=== PATIENT | male | born 1980 | race Caucasian/White ===

== ENCOUNTER 2016-11-01 11:01 | Emergency (ER) | payer OTHER ==
[2016-11-01] MEDS ORDERED: hydrOXYzine HCL 50 MG/ML VIAL IM ONE (11:45)
--- NOTE | 2016-11-01 12:01 | ED Physician Documentation ---
General Adult - HISTORIAN Historian: patient, spouse - HPI Stated Complaint: anxiety Chief Complaint: General Adult Additional Information: On Buspar 2-3 weeks, but didn't take it yesterday. Says it makes him feel like he is floating. Notes BP goes up when he is irritable, eats unhealthy food. Drinks whiskey every night a tHS. Refuses IM vistaril because he doesn't like needles. 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 - ROS CONST: no problems - PAST HX Past History: hypertension, other (HLD, Anxiety/Depression) Surgeries/Procedures: none Allergies/Adverse Reactions: Allergies Allergy/AdvReac Type Severity Reaction Status Date / Time No Known Drug Allergies Allergy Verified 11/01/16 11:34 Home Medications: Ambulatory Orders Medication Instructions Recorded Buspirone HCl [Buspar] 10 mg PO DAILY 11/01/16 Hydroxyzine Pamoate [Vistaril] 25 mg PO Q6H PRN #20 capsule 11/01/16 Lisinopril [Prinivil] 10 mg PO DAILY 11/01/16 - SOCIAL HX Smoking History: cigarettes Alcohol Use: other (daily) - FAMILY HX Family History: No - VITAL SIGNS Vital Signs: Vital Signs Temp Pulse Resp BP Pulse Ox 98.2 F 99 H 20 150/102 96 11/01/16 11:30 11/01/16 11:30 11/01/16 11:30 11/01/16 11:30 11/01/16 11:30 - REVIEWED ASSESSMENTS Nursing Assessment Reviewed: Yes Vitals Reviewed: Yes ED Results Lab/Radiology - Orders Orders: ED Orders Category Date Time Status hydrOXYzine HCL [Vistaril] Med 11/01/16 11:45 Once 50 mg IM NOW ONE General Adult Physical Exam - PHYSICAL EXAM GENERAL APPEARANCE: mild distress (anxious) EENT: eye inspection normal, ENT inspection normal, pharynx normal, YONNY NECK: normal inspection, supple RESPIRATORY: no resp distress, breath sounds normal CVS: reg rate & rhythm, heart sounds normal, no murmur RECTAL: deferred BACK: normal inspection SKIN: warm/dry, normal color EXTREMITIES: normal range of motion (gait and stance), no evidence of injury NEURO: CN's nml as tested, motor nml, sensation nml, cognition normal Discharge Clincal Impression: Anxiety Additional Instructions: Follow up with Your provider in the next 3-4 days. Home Medications: Ambulatory Orders Buspirone HCl [Buspar] 10 mg PO DAILY 11/01/16 Hydroxyzine Pamoate [Vistaril] 25 mg PO Q6H PRN #20 capsule 11/01/16 Lisinopril [Prinivil] 10 mg PO DAILY 11/01/16 Condition: Good Disposition: HOME, SELF-CARE Decision to Admit: NO Decision Time: 12:04
[2016-11-01 12:29] VITALS: BP 118/75
== END 2016-11-01 12:28 | disposition home or self-care (01) ==
LOC: ED 11:01
DX: F41.9 Anxiety disorder, unspecified (principal); F17.210 Nicotine dependence, cigarettes, uncomplicated; I10 Essential (primary) hypertension; E78.5 Hyperlipidemia, unspecified
CPT/HCPCS: 99282